=== PATIENT | female | born 1995 | race Caucasian/White ===

== ENCOUNTER → 2024-03-17 | Outpatient (CLI) | payer MEDICAID ==
[2024-03-17 13:41] LABS: HEMATOCRIT 35.2 % (37.0-47.0); HEMOGLOBIN 12.1 g/dL (12.5-16.0); LYMPH# 3.69 K/mm3 (1.50-4.00); MEAN CELL VOLUME 92 fl (78-100); MEAN CORPUSCULAR HEMOGLOBIN 32 pg (27-31); MEAN CORPUSCULAR HGB CONC 34 g/dL (33-37); MEAN PLATELET VOLUME 8.3 fl (7.4-10.4); MONO # 0.43 K/mm3 (0.20-0.80); NEU # 3.61 K/mm3 (1.40-6.50); PLATELET COUNT 246 K/mm3 (130-400); RED BLOOD COUNT 3.84 M/mm3 (4.10-5.30); WHITE BLOOD COUNT 7.7 K/mm3 (4.8-10.8)
[2024-03-17 13:49] LABS: ALBUMIN 4.7 g/dL (3.5-5.0); SODIUM 138 mmol/L (136-145)
[2024-03-17 13:50] LABS: CALCIUM 9.4 mg/dL (8.3-10.5)
[2024-03-17 13:51] LABS: TOTAL PROTEIN 7.4 g/dL (6.4-8.3)
[2024-03-17 13:52] LABS: GLUCOSE 101 mg/dL (65-105)
[2024-03-17 13:53] LABS: CARBON DIOXIDE 25 mmol/L (22-29); TOTAL BILIRUBIN 1.2 mg/dL (0.2-1.2)
[2024-03-17 13:57] LABS: AST-SGOT 12 U/L (5-34)
[2024-03-17 13:58] LABS: ALT/SGPT 15 U/L (0-55); MAGNESIUM 1.86 mg/dL (1.60-2.60)
== END ==
LOC: LAB 13:20
PROVIDERS: Internal Medicine
DX: M47.27 Other spondylosis with radiculopathy, lumbosacral region (principal); K90.9 Intestinal malabsorption, unspecified; E78.2 Mixed hyperlipidemia; Z98.1 Arthrodesis status; Z98.890 Other specified postprocedural states